=== PATIENT | female | born 2005 | race Hispanic/Latino ===

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

== ENCOUNTER → 2023-11-26 | Emergency (ER) | payer OTHER, SELFPAY ==
[~2023-11-26] MED LIST: NA CHLORIDE 0.9% 1,000 ML ONE; ONDANSETRON 4 MG/2 ML VIAL ONE
--- OUTSIDE RECORDS SUMMARY | 2023-11-26 17:10 | XMS REPORT | Continuity of Care Document ---
Author Name Unknown Address [address] [place] [address] [facility] thconnect Address [address] [place] [address] Care Team Providers Care Armature Varnisher Name Role Phone PCP, PATIENT DOES NOT HAVE A Primary Care Physic JEANNE Jiménez Attending Clinician Jeanne Mondragon Attending Clinician [phone] Payers Payer Name Policy Type Policy Number Effective Date Expirati on Date Source [facility] MEDICAID [id number] 2020 00:00:00 Problems Condition Name Condition Details Condition Category Status Onset Date Resolution Date Last Treatment Date Treating Clinician Comments Source No known active problems No known active problems Disease [facility] Allergies, Adverse Reactions, Alerts Allergy Name Allergy Type Status Severity Reaction(s) Onset Date Inactive Date Treating Clinician Comments Source NO KNOWN ALLERGIE S Drug Class Active [facility] Social History Social Habit Start Date Stop Date Quantity Comments Source Sex Assigned At 2005 00:00:00 2005 00:00:00 [facility] Smoking Status Start Date Stop Date Source Unknown if ever smoked [facility] Medications Ordered Medication Name Filled Medication Name Start Date Stop Date Current Medication? Ordering Clinician Indication Dosage Frequency Signature (SIG) Comments Components Source fluorouraci L 5 % cream 02-28 00:00: 00 Yes [id number] Apply to area(s) at bedtime. [facility] fluorouraci L 5 % cream 02-28 00:00: 00 Yes [id number] Apply to area(s) at bedtime. [facility] Vital Signs Vital Name Observation Time Observation Value Comments S dede Body height 2022-04-11 16:05:00 157.5 cm [facility] Body weight 2022-04-11 16:05:00 48.081 kg [facility] BMI 2022-04-11 16:05:00 19.39 kg/m2 [facility] Body mass index (BMI) [Percentile] Per age and sex 2022-04-11 16:05:00 22.15 % [place] [facility] Encounters Start Date/Time End Date/Time Encounter Type Admission Type Attending Clinicians Care Facility Care Department Encounter ID Source 2022-07-11 11:00:00 2022-07-11 11:00:00 Outpatient JEANNE PECK [facility] [id number] [facility] 2022-05-09 10:30:00 2022-05-09 10:30:00 Outpatient JEANNE PECK [facility] [id number] [facility] 2022-04-11 11:30:00 2022-04-11 17:26:[facility] 1.840.114 [id number] [facility] 2022-04-11 11:30:00 2022-04-11 17:26:23 Outpatient R JEANNE GARCIA [facility] [id number] [facility] 2022-04-11 11:30:00 2022-04-11 11:30:00 [id number] 2022-03-21 15:45:00 2022-03-21 16:55:20 [facility] 1.840.114 [id number] [facility] 2022-03-21 15:45:00 2022-03-21 16:55:20 Outpatient R JULIAROMARIOJEANNE [facility] [id number] [facility] 2022-03-21 15:45:00 2022-03-21 15:45:00 Outpatient R JULIAROMARIOJEANNE [facility] [id number] [facility] 2022-03-01 00:00:00 2022-03-01 00:00:00 [facility] [id number] [id number] [id number] [facility] 2022-02-28 16:15:00 2022-02-28 16:18:29 Outpatient R JEANNE GARCIA [facility] [id number] [facility] 2022-02-28 16:15:00 2022-02-28 16:18:29 [facility] [id number] [facility] 2022-02-07 09:30:00 2022-02-07 09:30:00 Outpatient R JEANNE GARCIA [facility] [id number] [facility] 2021-11-29 15:30:00 2021-11-29 15:30:00 Outpatient R JEANNE GARCIA [facility] [id number] [facility] 2021-08-02 08:30:00 2021-08-02 08:30:00 Outpatient R JEANNE GARCIA [facility] [id number] [facility] 2021-06-07 15:15:00 2021-06-07 15:15:00 Outpatient R JENANE GARCIA [facility] [id number] [facility] 2021-05-03 10:46:52 2021-05-03 11:33:22 [facility] [id number] [id number] [facility] 2021-05-03 11:30:00 2021-05-03 11:30:00 [facility] [id number] [facility] 2021-04-07 00:00:00 2021-04-07 00:00:00 [facility] 1.840.114 [id number] [id number] [facility] 2021-04-07 00:00:00 2021-04-07 00:00:00 [facility] 1.840.114 [id number] [id number] [facility] 2021-04-05 14:08:57 2021-04-05 15:03:22 [facility] [id number] [id number] [id number] [facility] 2021-04-05 14:30:00 2021-04-05 14:30:00 [facility] [id number] [facility]
[2023-11-26 17:44] LABS: Specific Gravity 1.027 (1.005-1.030)
[2023-11-26 17:49] LABS: Specific Gravity 1.027 (1.005-1.030); Urine Bacteria None Seen /HPF (<20); Urine Bilirubin NEGATIVE (Negative); Urine Blood Negative (Negative); Urine Clarity Clear (Clear); Urine Color Light-Yellow (Yellow); Urine Glucose NEGATIVE (Negative); Urine Mucus 1+ /HPF (None Seen); Urine Protein TRACE (Negative); Urine Urobilinogen 1+ (Normal); Urine pH 7.5 (5.0-7.0)
[2023-11-26 17:56] LABS: Albumin 4.3 g/dL (3.4-5.0); Bilirubin Total 0.4 mg/dL (0.2-1.0); Potassium 3.5 mEq/L (3.5-5.1); Protein, Total 8.4 g/dL (6.4-8.2)
[2023-11-26 17:57] LABS: Hematocrit 38.6 % (36.0-45.0); Lymphocytes % 15.1 % (15.3-44.8); MCV 89.2 fL (80-100); Platelets 212 thou/uL (152-406); RBC Red Blood Cell Count 4.33 M/uL (3.86-4.86)
--- NOTE | 2023-11-26 19:13 | RAD REPORT ---
EXAM DESCRIPTION: CTAbdomen Pelvis W Contrast - 11/26/2023 7:08 pm CLINICAL HISTORY: Abdominal pain. ABD PAIN COMPARISON: Abdomen Pelvis W Contrast dated 05/10/2019 TECHNIQUE: Biphasic CT imaging of the abdomen and pelvis was performed with 100 ml non-ionic IV cont rast. All CT scans are performed using dose optimization technique as appropriate and may include automated exposure control or mA/KV adjustment according to patient size. FINDINGS: The lung bases are clear. The liver, spleen, pancreas, adrenal glands and kidneys are within normal limits. No bowel obstruction, free air, free fluid or abscess. The appendix is normal. No evidence of signi ficant lymphadenopathy. No suspicious bony findings. IMPRESSION: No acute intra-abdominal or pelvic finding.
--- NOTE | 2023-11-26 19:20 | ER ---
Nurse's Notes [facility] Name: Matilda Ramirez Age: 18 yrs Sex: Female : 2005 Arrival Date: 11/26/2023 Time: 17:07 Bed DX4 Private MD: Diagnosis: Lower abdominal pain, unspecified;Nausea with vomiting, unspecified Presentation: 11/26 17:15 Chief complaint: Patient states: she has been having nausea/vomiting and bilateral ap3 lower pelvic pain. patient is also complaining of pink/orange discharge along with painful urination. Coronavirus screen: At this time, the client does not indicate any symptoms associated with coronavirus-19. Ebola Screen: No symptoms or risks identified at this time. Initial Sepsis Screen: Does the patient meet any 2 criteria? No. Patient's initial sepsis screen is negative. Does the patient have a suspected source of infection? No. Patient's initial sepsis screen is negative. Risk Assessment: Do you want to hurt yourself or someone else? Patient reports no desire to harm self or others. Onset of symptoms was November 25, 2023. 17:15 Method Of Arrival: Ambulatory ap3 17:15 Acuity: JIMENEZ 3 ap3 Triage Assessment: 17:17 General: Appears in no apparent distress. Behavior is calm, cooperative, appropriate ap3 for age. Pain: Complains of pain in pelvis Pain currently is 6 out of 10 on a pain scale. Neuro: Level of Consciousness is awake, alert, obeys commands, Oriented to person, place, time, situation, Appropriate for age. Cardiovascular: Patient's skin is warm and dry. Respiratory: Airway is patent Respiratory effort is even, unlabored, Respiratory pattern is regular, symmetrical. GI: Reports lower abdominal pain. : Reports discharge, bloody, pain with urination. 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 Flu vaccine is not up to date. - Social history:: Smoking status: Patient denies any tobacco usage or history of. Screenin:18 [facility] Fall Risk Assessment (Adult) History of falling in the last 3 months, ap3 including since admission No falls in past 3 months (0 pts). Abuse screen: Denies threats or abuse. Nutritional screening: No deficits noted. Tuberculosis screening: No symptoms or risk factors identified. Assessment: 19:00 General: Appears in no apparent distress. comfortable, well groomed, well developed, pf1 Behavior is calm, cooperative, appropriate for age, quiet. 19:00 Pain: Complains of pain in abdomen. Neuro: No deficits noted. Level of Consciousness is pf1 awake, alert, obeys commands, Oriented to person, place, time, situation, Appropriate for age. Cardiovascular: No deficits noted. Capillary refill < 3 seconds Patient's skin is warm and dry. Respiratory: No deficits noted. Airway is patent Respiratory effort is even, unlabored, Respiratory pattern is regular, symmetrical. GI: Abdomen is flat, non-distended, Reports lower abdominal pain, nausea, vomiting. : No deficits noted. No signs and/or symptoms were reported regarding the genitourinary system. EENT: No deficits noted. No signs and/or symptoms were reported regarding the EENT system. Derm: No deficits noted. No signs and/or symptoms reported regarding the dermatologic system. Vital Signs: 17:15 Pulse 98; Resp 17; Temp 99.8; Pulse Ox 98% ; Weight 46.72 kg; Pain 6/10; ap3 19:40 BP 110 / 67; Pulse 92; Resp 16; Temp 98.9; Pulse Ox 100% ; pf1 17:15 Pain Scale: Adult ap3 ED Course: 17:12 Patient arrived in ED. mg5 17:12 [facility] kb 17:12 Maxim Toledo MD is Attending Physician. kb 17:16 Triage completed. ap3 17:18 Arm band placed on right wrist. ap3 17:36 Inserted saline lock: 20 gauge in left antecubital area, using aseptic technique. Blood as6 collected. 19:00 Patient has correct armband on for positive identification. Adult w/ patient. pf1 19:10 CT Abd/Pelvis - IV Contrast Only In Process Unspecified. EDMS 19:45 Provided Education on: prescription. pf1 19:45 No provider procedures requiring assistance completed. pf1 19:45 IV discontinued, intact, bleeding controlled, No redness/swelling at site. Pressure pf1 dressing applied. Administered Medications: 17:35 Drug: NS 0.9% IV 1000 ml IV at 1 bolus Per protocol; 1000 mL bolus Route: IV; Rate: 1 as6 bolus; Site: left antecubital; 19:00 Follow up: Response: No adverse reaction; Marked relief of symptoms; IV Status: pf1 Completed infusion; IV Intake: 1000ml 17:45 Drug: Ondansetron IVP 4 mg IVP once; over 2 minutes Route: IVP; Site: left antecubital; as6 19:00 Follow up: Response: No adverse reaction; Marked relief of symptoms pf1 Medication: 19:45 VIS not applicable for this client. pf1 Intake: 19:00 IV: 1000ml; Total: 1000ml. pf1 Outcome: 19:20 Discharge ordered by . beulah 19:45 Discharged to home ambulatory, with family, pf1 19:45 Condition: improved 19:45 Discharge instructions given to patient, family, Instructed on discharge instructions, follow up and referral plans. Demonstrated understanding of instructions, follow-up care, medications, Prescriptions given X 1, 20:03 Patient left the ED. pf1 Signatures: Dispatcher [employer] EDMS Irais Garcia, VISUAL MERCHANDISING COORDINATOR-C VISUAL MERCHANDISING COORDINATOR-Ale Narayanan RN RN [id number] Andres Marcano RN RN as6 Bev Rodriguez RN RN pf1 Erica Victor mg5
--- NOTE | 2023-11-26 19:20 | EDPHYS ---
Physician Documentation [facility] Name: Matilda Ramirez Age: 18 yrs Sex: Female : 2005 Arrival Date: 11/26/2023 Time: 17:07 Bed DX4 Private MD: ED Physician Maxim Toledo HPI: 11/26 23:37 This 18 yrs old Female presents to ER via Ambulatory with complaints of kb Nausea/Vomiting, Abdominal Pain - Low. 23:37 Patient is a 18-year-old female who presents for lower abdominal pain, nausea and kb vomiting that started yesterday with dysuria that started today. Denies fever. Denies vomiting.. 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 Flu vaccine is not up to date. - Social history:: Smoking status: Patient denies any tobacco usage or history of. ROS: 23:36 Constitutional: Negative for fever, chills, and weight loss, kb 23:36 Abdomen/GI: Positive for abdominal pain, nausea and vomiting, 23:36 All other systems are negative, Exam: 23:36 Constitutional: This is a well developed, well nourished patient who is awake, alert, kb and in no acute distress. Head/Face: Normocephalic, atraumatic. ENT: Moist Mucous membranes Cardiovascular: Regular rate Respiratory: Respirations even and unlabored. No increased work of breathing. Talking in full sentences Skin: Warm, dry with normal turgor. Normal color. MS/ Extremity: Pulses equal, no cyanosis. Neurovascular intact. Full, normal range of motion. Neuro: Awake and alert, GCS 15, oriented to person, place, time, and situation. Moves all extremities. Normal gait. 23:36 Abdomen/GI: Inspection: abdomen appears normal, Bowel sounds: normal, Palpation: soft, in all quadrants, mild abdominal tenderness, in the right lower quadrant and left lower quadrant, Vital Signs: 17:15 Pulse 98; Resp 17; Temp 99.8; Pulse Ox 98% ; Weight 46.72 kg; Pain 6/10; ap3 19:40 BP 110 / 67; Pulse 92; Resp 16; Temp 98.9; Pulse Ox 100% ; pf1 17:15 Pain Scale: Adult ap3 MDM: 17:12 Patient medically screened. kb 23:36 Differential diagnosis: Nonspecific abd pain, appendicitis, diverticulitis, viral kb gastroenteritis, uti, nonspecific abd pain. Data reviewed: vital signs, nurses notes. Counseling: I had a detailed discussion with the patient and/or guardian regarding the historical points, exam findings, and any diagnostic results supporting the discharge/admit diagnosis, lab results, radiology results, the need for outpatient follow up, a family practitioner, to return to the emergency department if symptoms worsen or persist or if there are any questions or concerns that arise at home. 11/26 17:17 Order name: CBC with Diff; Complete Time: 18:19 kb 11/26 17:17 Order name: CMP; Complete Time: 17:58 kb 11/26 17:17 Order name: Lipase; Complete Time: 17:58 kb 11/26 17:17 Order name: Test, Urine; Complete Time: 17:52 kb 11/26 17:17 Order name: Urinalysis w/ reflexes; Complete Time: 17:52 kb 11/26 18:19 Order name: CT Abd/Pelvis - IV Contrast Only; Complete Time: 19:20 kb 11/26 17:17 Order name: IV Saline Lock; Complete Time: 17:35 kb 11/26 17:17 Order name: Labs collected and sent; Complete Time: 17:35 kb Administered Medications: 17:35 Drug: NS 0.9% IV 1000 ml IV at 1 bolus Per protocol; 1000 mL bolus Route: IV; Rate: 1 as6 bolus; Site: left antecubital; 19:00 Follow up: Response: No adverse reaction; Marked relief of symptoms; IV Status: pf1 Completed infusion; IV Intake: 1000ml 17:45 Drug: Ondansetron IVP 4 mg IVP once; over 2 minutes Route: IVP; Site: left antecubital; as6 19:00 Follow up: Response: No adverse reaction; Marked relief of symptoms pf1 Disposition Summary: 11/26/23 19:20 Discharge Ordered Notes: Location: Home kb Condition: Stable kb Diagnosis - Lower abdominal pain, unspecified kb - Nausea with vomiting, unspecified kb Followup: kb - With: Emergency Department - When: As needed - Reason: Worsening of condition Followup: kb - With: Private Physician - When: 2 - 3 days - Reason: Recheck today's complaints, Continuance of care, Re-evaluation by your physician Discharge Instructions: - Discharge Summary Sheet kb - Nausea and Vomiting, Adult, [id number] kb - Abdominal Pain, Adult, [id number] kb Forms: - Medication Reconciliation Form kb - Thank You Letter kb - Antibiotic Education kb - Prescription Opioid Use kb - Patient Portal Instructions kb - Leadership Thank You Letter kb Prescriptions: - Zofran 4 mg Oral tablet - take 1 tablet ORAL route every 6 hours As needed; 12 tablet; Refills: 0, kb Product Selection Permitted Signatures: Dispatcher [employer] EDMS Irais Garcia FNP-C FNP-Ckb Prokisch, Amanda RN RN ap3 Andres Marcano RN RN as6 Bev Rodriguez RN pf1
== END ==
LOC: ER 17:07
DX: R10.30 Lower abdominal pain, unspecified (principal); R11.2 Nausea with vomiting, unspecified
CPT/HCPCS: 36415; 74177; 80053; 81001; 81025; 83690; 85025; J2405; J7030; Q9967